=== PATIENT | female | born 1985 ===

== ENCOUNTER 2017-09-03 06:27 | Day surgery (SDC) | payer MEDICAID, MEDICARE ==
[2017-09-02 13:17] VITALS: BMI 23.4
[2017-09-03] MEDS ORDERED: Propofol 10 mg/ml Inj (20 ML) ONE (07:13)
[2017-09-03] MEDS ORDERED: Midazolam 2 MG/2 ML VIAL ONE (07:13)
[2017-09-03] MEDS ORDERED: ceFAZolin IV 1 gm in Dextrose 1 GM/50 ML BAG IVPB ONE (07:53)
[2017-09-03] MEDS ORDERED: Bupivacaine HCl 0.25% PF (10 ml) Inj ONE (08:25)
[2017-09-03] MEDS ORDERED: Bacitracin 500 Units/gm Oint Foilpak UD ONE (08:25)
[2017-09-03] MEDS ORDERED: HYDROmorphone 0.5 mg/0.5 ml ISec IVP PRN (08:58)
[2017-09-03] MEDS ORDERED: ePHEDrine 50 mg/ml Inj ONE (08:59)
--- NOTE | 2017-09-03 10:02 | PCM.SURG1 ---
Surgeon's Initial Post Op Note - Surgeon's Notes Surgeon: Dr. Zarate Spray Gun Repairer Helper: Dr. Ely PGY-3 Type of Anesthesia: General LMA, Local Pre-Operative Diagnosis: Right Index finger FDP tendon injury Operative Findings: Right Index finger FDP tendon injury Post-Operative Diagnosis: Right Index finger FDP tendon injury Operation Performed: 1) FDP tendon repair of right index finger 2) excision of scar and foreign body (glass) from right middle finger Specimen/Specimens Removed: scar, glass from right middle finger Estimated Blood Loss: EBL {In ML}: 30 Blood Products Given: N/A Drains Used: No Drains Post-Op Condition: Good Date of Surgery/Procedure: 09/03/17 Time of Surgery/Procedure: 10:02
[2017-09-03 11:01] VITALS: O2SAT 100
[2017-09-03 12:26] VITALS: RESP 16; TEMP 97.9
[2017-09-03 12:38] VITALS: BP 105/60; PULSE 71
--- NOTE | 2017-09-09 02:06 | OP ---
PROCEDURE DATE: 09/03/2017 PREOPERATIVE DIAGNOSES: Right index finger flexor digitorum profundus injury and foreign body to right long finger. POSTOPERATIVE DIAGNOSES: Right index finger flexor digitorum profundus injury and foreign body to right long finger. PROCEDURE: 1. Repair of FDB tendon with intact FDS to the right index finger in zone I. 2. Excision of scar and foreign body glass from right long finger. SURGEON: Johanne Zarate MD MANAGER MED SURG: Diana Ely, PGY3. TYPE OF ANESTHESIA: General endotracheal anesthesia. ESTIMATED BLOOD LOSS: 30 mL SPECIMEN: Scar with possible foreign body, sent to Pathology. COUNTS: Lap, sponge and needle counts were correct at the end of the case. CONDITION: The patient was stable upon discharge to recovery. INDICATIONS FOR SURGERY: The patient is a 31-year-old female, who injured her right hand at the beginning of 08/2017, by the time she saw me, she was already 3-1/2 weeks out and needed urgent repair of FDP tendon. We discussed the possibility of Damaso rods if primary repair was not possible. DESCRIPTION OF PROCEDURE: The patient was identified in the holding area. The right arm was marked. She was then brought to the operating room and laid supine on the operating room table. Once general anesthesia was induced, the right arm was placed in a tourniquet and then prepped and draped in usual sterile fashion. Using an Esmarch, the arm was exsanguinated and tourniquet inflated to 250 mmHg of pressure for a total of 60 minutes. Using the laceration incorporating an inter Brett type incisions, the incision was made over the middle and distal aspect of the finger in order to expose the zone I aspect of the flexor tendon sheath. The tendon was noted to be transected just proximal to the A4 joselyn and enough distal aspect of the tendon was able to be identified. Proximally, the tendon retriever was used to find the FDP tendon and we were unsuccessful. A second counter incision was made over the area of the MCP joint in order to expose the FDP tendon. At this level, the tendon was found and using a single suture through the tendon was threaded back through the flexor tendon sheath under the finger. An 18 gauge needle was then used to secure the tendon temporarily in an extended position. Using 4-0 Supramid in a Peterson modified suture technique, the FDP tendon was repaired and tied down. The neurovascular bundle on either side of the tendon had been explored and identified. There was no evidence of scarring or injury around the neurovascular bundles on either side. The long finger scar along the radial aspect produced pain on the ulnar tip. Using this fact, the radial aspect of the scar was excised 4 mm x 2 mm area and sent to pathology as a separate specimen. At this point, the tourniquet was deflated and pressure held for 5 minutes and any bleeding was controlled with electrocautery, 4-0 chromic sutures were then used to close the skin flaps on the index finger and closed primarily the wound on the long finger. The patient tolerated the procedure well. Dressing was then applied with Adaptic, bacitracin, 4 x 4 gauge, Webril and a dorsal shell was then applied with the fingers in the flexion and the wrist in 10 degrees of flexion. This was secured in place with an Vahe wrap. The patient tolerated the procedure well, was extubated on the table. Marcaine was applied for postoperative pain relief. She was then brought to the recovery in stable condition. Johanne Zarate MD
== END 2017-09-03 12:00 | disposition home or self-care (01) ==
LOC: C.SDS 06:27
PROVIDERS: ATTEND Plastic Surgery Surgery of the Hand
DX: S66.120A Laceration of flexor muscle, fascia and tendon of right index finger at wrist and hand level, initial encounter (principal); S60.551A Superficial foreign body of right hand, initial encounter
CPT/HCPCS: 11420; 26356; 88305; J0690; J1885; J2001; J2250; J2405; J2704; J3010